=== PATIENT | male | born 1980 | race Caucasian/White ===

== ENCOUNTER 2016-12-12 11:16 | Emergency (ER) | payer BC, OTHER ==
[~2016-12-12] VITALS: Ht 177.8 cm; Wt 117.9 kg
[2016-12-12 11:18] VITALS: BP 130/76
--- NOTE | 2016-12-12 11:26 | NUR ---
Patient taken from ED lobby to XRAY via wheelchair by tech.
--- NOTE | 2016-12-12 11:50 | NUR ---
Patient ambulated to bed 3. RN evaluating patient at bedside.
--- NOTE | 2016-12-12 11:50 | NUR ---
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 DENIES N/V/D; SKIN IS PINK/WARM/DRY; AAOX4 WITH EVEN AND STEADY GAIT; LUNGS CLEAR BL; HR EVEN AND REGULAR; PT DENIES ANY FEVER, CP, SOB, OR COUGH AT THIS TIME; PATIENT STATES PAIN OF 0/10 AT THIS TIME; PATIENT POSITIONED FOR COMFORT; HOB ELEVATED; BEDRAILS UP X2; BED DOWN. 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
--- NOTE | 2016-12-12 12:45 | NUR ---
PT SLEEPING WILL RECHECK VITAL SIGN
--- NOTE | 2016-12-12 14:08 | NUR ---
APPLE JUICE GIVEN AND WATER AND SOME CRACKERS, PT VERBALIZED IM HUNGRY, NO PAIN AT THIS TIME,VITAL SIGN STABLE
[2016-12-12] MEDS ORDERED: LIDOCAINE/EPI 1% 1:100000 20 ML VIAL INJ ONE (14:45)
--- NOTE | 2016-12-12 15:08 | NUR ---
Pa at bedside
--- NOTE | 2016-12-12 15:25 | NUR ---
EMT AT BEDSIDE CLEANING WOUND
[2016-12-12] MEDS ORDERED: NEOMYCIN/POLYMYXIN/BACITRACIN 0.9 GM/1 PKT TP ONE (15:35)
[2016-12-12] MEDS: NEOMYCIN/POLYMYXIN/BACITRACIN OPTH OINT 3.5 GM TUBE OP SCH (15:36)
--- NOTE | 2016-12-12 15:39 | NUR ---
PT WENT TO THE BATHROOM AT THIS TIME, DERIAN ALMEIDA.
[2016-12-12 15:45] VITALS: BP 118/58
--- NOTE | 2016-12-12 15:47 | NUR ---
Patient discharged with v/s stable. Written and verbal after care instructions given and explained. Patient alert, oriented and verbalized understanding of instructions. Ambulatory with steady gait. All questions addressed prior to discharge. ID band removed. Patient advised to follow up with PMD. Rx of MOTRIN AND KEFLEX given. Patient educated on indication of medication including possible reaction and side effects. Opportunity to ask questions provided and answered. ENCOURAGED HAND HYGIENE AND PT AGREED WITH IT.
== END 2016-12-12 15:47 | disposition home or self-care (01) ==
LOC: MED 11:16
DX: S60.551A Superficial foreign body of right hand, initial encounter (principal); J45.909 Unspecified asthma, uncomplicated; G89.29 Other chronic pain; M54.5 Low back pain; W18.39XA Other fall on same level, initial encounter; Y93.89 Activity, other specified; Y92.89 Other specified places as the place of occurrence of the external cause; Y99.8 Other external cause status
CPT/HCPCS: 73130; 90471; 90715; 99284; J2001

== ENCOUNTER 2019-05-23 18:32 | Emergency (ER) | payer OTHER ==
[~2019-05-23] VITALS: Ht 180.3 cm; Wt 117.9 kg
[2019-05-23 19:13] VITALS: BP 137/77
--- NOTE | 2019-05-23 19:54 | NUR ---
PT AMBULATED WITH SLOW STEADY GAIT TO BED #11.
--- NOTE | 2019-05-23 20:02 | NUR ---
39 Y/O MALE PRESENTS TO ED, C/O OF FEVER ALONG WITH NAUSEA AND VOMITING. PT STATES SYMPTOMS STARTED LAST SUNDAY. PT ABLE TO TOLERATE FOOD AND FLUIDS. PT C/O OF BODY ACHE 03/11. TOOK TYLENOL WITH LITTLE RELIEF. PT DENIES ANY SOB/CHEST PAIN. PT STABLE. ERMD AWARE. WILL CONTINUE TO MONITOR.
[2019-05-23] MEDS ORDERED: KETOROLAC 60 MG/2 ML VIAL IM ONE (20:30)
[2019-05-23 20:49] VITALS: BP 137/77
--- NOTE | 2019-05-23 20:49 | NUR ---
PT DISCHARGED WITH PAPERWORK. RX ZOFRAN, IMODIUM, MOTRIN. EDUCATED PT REGARDING MEDICATIONS AND S/E. EDUCATED PT REGARDING D/C DIAGNOSIS AND INSTRUCTIONS. PT VERBALIZED UNDERSTANDING OF TEACHING. TOLD PT TO FOLLOW UP WITH PCP AND WHEN TO RETURN TO ED. PT STABLE CONDITION. ALL QUESTIONS ANSWERED.
== END 2019-05-23 20:49 | disposition home or self-care (01) ==
LOC: MED 18:32
DX: R10.9 Unspecified abdominal pain (principal); R50.9 Fever, unspecified; R19.7 Diarrhea, unspecified; J45.909 Unspecified asthma, uncomplicated
CPT/HCPCS: 96372; 99283; J1885

== ENCOUNTER 2019-09-15 08:26 | Emergency (ER) | payer OTHER ==
[~2019-09-15] VITALS: Ht 175.3 cm; Wt 111.1 kg
[2019-09-15 08:32] VITALS: BP 141/77
[2019-09-15] MEDS ORDERED: FAMOTIDINE 20 MG/2 ML VIAL IVP ONE (08:40)
[2019-09-15] MEDS ORDERED: NACL 0.9% 1,000 ML IV ONE (08:40)
[2019-09-15] MEDS ORDERED: ONDANSETRON 4 MG/2 ML VIAL IVP ONE (08:40)
[2019-09-15 08:55] LABS: BASOPHILS # (AUTO) 0.1 K/uL (0.00-0.22); BASOPHILS % (AUTO) 0.5 % (0.0-2.0); EOSINOPHILS # (AUTO) 0.2 K/uL (0-0.4); EOSINOPHILS % (AUTO) 1.9 % (0.0-4.0); HEMOGLOBIN 16.9 g/dL (12.0-18.0); LYMPHOCYTES # (AUTO) 0.8 K/uL (2.0-11.5); LYMPHOCYTES % (AUTO) 6.9 % (20.5-51.1); MEAN CORPUSCULAR HEMOGLOBIN 29 pg (27-31); MEAN CORPUSCULAR HGB CONC 33 g/dL (33-37); MEAN CORPUSCULAR VOLUME 87.2 fL (80-94); MONOCYTES # (AUTO) 1.2 K/uL (0.8-1.0); MONOCYTES % (AUTO) 10.1 % (1.7-9.3); NEUTROPHILS # (AUTO) 9.8 K/uL (1.8-7.7); NEUTROPHILS % (AUTO) 80.6 % (42.2-75.2); PLATELET COUNT (AUTO) 306 K/uL (140-450); RED BLOOD CELL COUNT(AUTO) 5.85 MIL/uL (4.20-6.10); RED CELL DISTRIBUTION WIDTH 14.3 % (11.6-13.7); WHITE BLOOD COUNT (AUTO) 12.1 K/uL (4.8-10.8)
[2019-09-15 09:06] LABS: CREATININE 1.2 mg/dL (0.6-1.3); POTASSIUM 4.1 mmol/L (3.5-5.1)
[2019-09-15 09:10] LABS: ANION GAP 18.1 (8-16)
--- NOTE | 2019-09-15 09:14 | NUR ---
39/M BIB SELF C/O N/V/D, EPIGASTRIC PAIN,FEVER, COUGH, FATIGUE STARTING YESTERDAY. ABDOMEN SOFT, NO TENDERNESS.PATIENT STATES PAIN OF 6/10 AT THIS TIME. PATIENT POSITIONED FOR COMFORT; HOB ELEVATED; BEDRAILS UP X1; BED DOWN. ER MD MADE AWARE OF PT STATUS.
[2019-09-15 09:21] LABS: ALBUMIN 3.9 g/dL (3.4-5.0); TOTAL BILIRUBIN 1.7 mg/dL (0.0-1.0)
[2019-09-15] MEDS ORDERED: LOPERAMIDE 2 MG CAP PO ONE (09:25)
[2019-09-15] MEDS ORDERED: KETOROLAC 30 MG/ML VIAL IVP ONE (09:40)
[2019-09-15 09:52] VITALS: BP 123/67
== END 2019-09-15 09:52 | disposition home or self-care (01) ==
LOC: MED 08:26
DX: R11.2 Nausea with vomiting, unspecified (principal); R19.7 Diarrhea, unspecified; R10.9 Unspecified abdominal pain; J45.909 Unspecified asthma, uncomplicated
CPT/HCPCS: 36415; 80053; 85025; 87804; 96361; 96374; 96375; 99284; J1885; J2405; J3490; J7030